=== PATIENT | female | born 1975 | race Caucasian/White ===

== ENCOUNTER 2020-09-08 08:49 | Emergency (ER) | payer OTHER ==
[2020-09-08 10:12] LABS: HEMOGLOBIN 12.5 gm/dl (12.3-15.3); RED BLOOD COUNT 5.13 M/UL (4.00-5.10); WHITE BLOOD COUNT 20.6 K/UL (4.5-11.0)
[2020-09-08 10:32] LABS: BUN/CREATININE RATIO 47 (0-10)
[2020-09-08] MEDS ORDERED: HYDROCODON-ACE1 EAC4 PO ×4 (12:14→13:07)
== END 2020-09-08 13:20 | disposition home or self-care (01) ==
LOC: ER1 08:49
PROVIDERS: Physician Assistant
DX: S32.019A Unspecified fracture of first lumbar vertebra, initial encounter for closed fracture (principal); S32.029A Unspecified fracture of second lumbar vertebra, initial encounter for closed fracture; S22.31XA Fracture of one rib, right side, initial encounter for closed fracture; S00.511A Abrasion of lip, initial encounter; S00.81XA Abrasion of other part of head, initial encounter; M25.551 Pain in right hip; Z88.0 Allergy status to penicillin; V03.00XA Pedestrian on foot injured in collision with car, pick-up truck or van in nontraffic accident, initial encounter; Y92.410 Unspecified street and highway as the place of occurrence of the external cause
CPT/HCPCS: 36415; 71260; 72128; 72131; 80053; 84703; 85025; 96374; 96375; 99284; J2270; J2405; Q9967